=== PATIENT | female | born 2000 | race Caucasian/White ===

== ENCOUNTER → 2021-08-19 | Outpatient (CLI) | payer BC ==
[2021-08-19 16:45] LABS: HEMOGLOBIN 13.9 gm/dl (12.3-15.3); RED BLOOD COUNT 4.71 M/UL (4.00-5.10); WHITE BLOOD COUNT 9.5 K/UL (4.5-11.0)
[2021-08-19 17:09] LABS: BUN/CREATININE RATIO 16 (0-10)
== END ==
LOC: LAB 16:15
PROVIDERS: Nurse Practitioner Family
DX: R00.2 Palpitations (principal); E53.8 Deficiency of other specified B group vitamins; E55.9 Vitamin D deficiency, unspecified
CPT/HCPCS: 36415; 80053; 82607; 84443; 85025